=== PATIENT | female | born 1965 | race African-American/Black ===

== ENCOUNTER 2021-02-17 02:43 | Emergency (ER) | payer MEDICAID ==
[~2021-02-17] VITALS: Ht 157.5 cm; Wt 77.3 kg
[2021-02-17] MEDS ORDERED: IBUPROFEN 600MG TABLET PO ONE (03:15)
[2021-02-17 03:30] LABS: BASOPHILS % 0.9 % (0.0-2.0); EOSINOPHILS % 1.1 % (0.0-5.0); HEMATOCRIT. 39.8 % (36.0-48.0); HEMOGLOBIN. 13.4 g/dL (12.0-16.0); LYMPHOCYTES % 30.4 % (20.0-50.0); MEAN CORPUSCULAR HEMOGLOBIN 32.8 pg (28.0-32.0); MEAN CORPUSCULAR VOLUME 97.7 fL (81.0-99.0); MEAN PLATELET VOLUME 7.3 fl (7.4-10.4); MONOCYTES % 8.8 % (2.0-8.0); NEUTROPHILS % 58.8 % (40.0-76.0); PLATELET 213 x1000/uL (130-400); RED BLOOD CELL COUNT 4.07 mill/uL (4.2-5.4); RED CELL DISTRIBUTION WIDTH 13.4 % (11.6-14.6)
[2021-02-17 03:34] LABS: CHLORIDE 105 mEq/L (98-107)
[2021-02-17] MEDS ORDERED: NAPR-1176 MT (04:01)
[2021-02-17 04:30] VITALS: BP 121/69
== END 2021-02-17 04:49 | disposition home or self-care (01) ==
LOC: ER 02:43
DX: M25.562 Pain in left knee (principal); M62.831 Muscle spasm of calf
CPT/HCPCS: 36415; 73562; 80053; 85025; 99284

== ENCOUNTER 2023-07-21 03:21 | Emergency (ER) | payer MEDICAID, OTHER ==
[~2023-07-21] VITALS: Ht 157.5 cm; Wt 48.0 kg
[~2023-07-21 03:21] MED LIST: NAPR-1176 MT
[2023-07-21 03:32] VITALS: O2SAT 99
[2023-07-21] MEDS ORDERED: KETOROLAC 30MG/ML VIAL IV ONE (05:15)
[2023-07-21 05:42] VITALS: BP 114/64
[2023-07-21] MEDS ORDERED: IBUP-2029 MT (06:18)
[2023-07-21] MEDS ORDERED: GABA-532 MT (06:18)
[2023-07-21 06:55] VITALS: PULSE 81; RESP 12; TEMP 98.1
== END 2023-07-21 06:57 | disposition home or self-care (01) ==
LOC: ER 03:21
DX: S52.502A Unspecified fracture of the lower end of left radius, initial encounter for closed fracture (principal); S62.102A Fracture of unspecified carpal bone, left wrist, initial encounter for closed fracture; Z98.51 Tubal ligation status; X58.XXXA Exposure to other specified factors, initial encounter; Y93.89 Activity, other specified; Y92.89 Other specified places as the place of occurrence of the external cause; Y99.8 Other external cause status
CPT/HCPCS: 99284; 96374; 73110; 73130; 29125; J1885